=== PATIENT | female | born 1965 | race Caucasian/White ===

== ENCOUNTER 2020-03-06 19:33 | Emergency (ER) | payer OTHER ==
[~2020-03-06] VITALS: Ht 157.5 cm; Wt 75.0 kg
[2020-03-06 20:08] LABS: BASOPHILS % (AUTO) 1 % (0-1); EOSINOPHILS % (AUTO) 1 % (1-7); LYMPHOCYTES % (AUTO) 49 % (22-44); MEAN CORPUSCULAR HEMOGLOBIN 30.8 pg (27.0-34.8); MEAN CORPUSCULAR HGB CONC 33.6 g/dL (32.4-35.8); MEAN PLATELET VOLUME 8.4 fL (7.4-10.4); MONOCYTES % (AUTO) 5 % (2-9); NEUTROPHILS % (AUTO) 44 % (42-75); PLATELET COUNT 297 x10^3/uL (130-400); RED BLOOD COUNT 4.76 x10^6/uL (3.82-5.3); RED CELL DISTRIBUTION WIDTH 12.8 % (9.6-15.2)
[2020-03-06 20:12] LABS: ALANINE AMINOTRANSFERASE 28 U/L (12-78); ALBUMIN 4.1 g/dL (3.4-5.0); ANION GAP 7 mmol/L (5-15); CALCIUM 9.3 mg/dL (8.5-10.1); CHLORIDE 112 mmol/L (98-107); CREATININE 0.82 mg/dL (0.55-1.02)
[2020-03-06 20:16] LABS: ALKALINE PHOSPHATASE 115 U/L (45-117); BILIRUBIN,TOTAL 0.3 mg/dL (0.2-1.0); TOTAL PROTEIN 7.4 g/dL (6.4-8.2); TROPONIN I < 0.015 ng/mL (0.000-0.045)
[2020-03-06 20:31] LABS: MD SCAN
--- NOTE | 2020-03-06 20:43 | NUR ---
MD AT BEDSIDE TO UPDATE PT ON POC.
[2020-03-06] MEDS ORDERED: ACETAMINOPHEN 325 MG TABLET ONE (20:55)
[2020-03-06] MEDS ORDERED: ACETAMINOPHEN 325 MG TABLET PO ONE (21:00)
[2020-03-06 22:37] LABS: TROPONIN I < 0.015 ng/mL (0.000-0.045)
[2020-03-06 22:41] VITALS: BP 137/95
== END 2020-03-06 23:05 | disposition home or self-care (01) ==
LOC: ED 21:44
DX: R07.89 Other chest pain (principal); R42 Dizziness and giddiness; R09.81 Nasal congestion; F17.210 Nicotine dependence, cigarettes, uncomplicated
CPT/HCPCS: 36415; 71045; 80053; 84484; 85025; 93005; 99285; 99406